=== PATIENT | female | born 1945 | race Caucasian/White ===

== ENCOUNTER 2017-05-13 12:49 | Outpatient (CLI) | payer MEDICARE ==
[~2017-05-13 12:49] MED LIST: ASPI-1265 PO; ATEN-169 PO; ATOR-2 PO; CITA20TA11 PO; CLOP75TA15 PO; COLE1TAB2 PO; HCTZ25T PO; HYDR-3965 PO; MELO-100 PO; OMEP20CA10 PO
[2017-05-13 13:28] LABS: ANION GAP 10 (8-16); BLOOD UREA NITROGEN 19 MG/DL (7-18); BUN/CREATININE RATIO 18.8 (6.6-38.0); CALCIUM 8.6 MG/DL (8.5-10.1); CHLORIDE 100 MMOL/L (99-107); CREATININE 1.01 MG/DL (0.40-0.90); GLUCOSE 102 MG/DL (70-104); POTASSIUM 3.6 MMOL/L (3.5-5.1); SODIUM 138 MMOL/L (135-145); TOTAL CARBON DIOXIDE 27.8 MMOL/L (24-32); eGFR 54 ML/MIN
== END 2017-05-13 23:59 | disposition home or self-care (01) ==
LOC: LAB 12:49
PROVIDERS: ATTEND Internal Medicine Interventional Cardiology
DX: I10 Essential (primary) hypertension (principal); Z98.890 Other specified postprocedural states
CPT/HCPCS: 36415; 80048

== ENCOUNTER 2018-10-28 09:20 | Outpatient (CLI) | payer MEDICARE ==
[~2018-10-28 09:20] MED LIST changes: -CITA20TA11 PO; +CITA20TA28 PO; -OMEP20CA10 PO; +OMEP20CA11 PO
[2018-10-28 10:16] LABS: PARTIAL THROMBOPLASTIN TIME 26 SECONDS (22-32)
[2018-10-28 10:17] LABS: ALBUMIN 3.8 G/DL (3.4-5.0); ANION GAP 10 (8-16); BASOPHILS % (AUTO) 0.7 % (0-1); BLOOD UREA NITROGEN 22 MG/DL (7-18); BUN/CREATININE RATIO 17.6 (6.6-38.0); CALCIUM 8.9 MG/DL (8.5-10.1); CHLORIDE 101 MMOL/L (99-107); CREATININE 1.25 MG/DL (0.40-0.90); EOSINOPHILS # (AUTO) 0.1 X10'3 (0-0.9); GLUCOSE 107 MG/DL (70-104); HEMATOCRIT 36.6 % (35.0-45.0); HEMOGLOBIN 12.3 g/dl (12.0-16.0); LYMPHOCYTES # (AUTO) 1.1 X10'3 (1.1-4.8); LYMPHOCYTES % (AUTO) 18.1 % (21-51); MEAN CORPUSCULAR HEMOGLOBIN 33.6 PG (27.0-31.0); MEAN CORPUSCULAR HGB CONC 33.6 g/dL (33.0-36.5); MEAN PLATELET VOLUME 6.8 FL (7.4-10.4); MONOCYTES # (AUTO) 0.4 X10'3 (0-0.9); MONOCYTES % (AUTO) 7.1 % (2-12); NEUTROPHILS # (AUTO) 4.6 X10'3 (1.8-7.7); NEUTROPHILS % (AUTO) 73.1 % (42-75); PLATELET COUNT 242 X10'3 (140-440); POTASSIUM 4.1 MMOL/L (3.5-5.1); RED BLOOD COUNT 3.66 X10'6 (4.20-5.60); RED CELL DISTRIBUTION WIDTH 13.4 % (11.5-14.5); SODIUM 137 MMOL/L (135-145); TOTAL CARBON DIOXIDE 26.5 MMOL/L (24-32); WHITE BLOOD COUNT 6.2 X10'3 (4.5-11.0); eGFR 42 ML/MIN
== END 2018-10-28 23:59 | disposition home or self-care (01) ==
LOC: LAB 09:20
PROVIDERS: ATTEND Internal Medicine Interventional Cardiology
DX: Z01.810 Encounter for preprocedural cardiovascular examination (principal); I25.718 Atherosclerosis of autologous vein coronary artery bypass graft(s) with other forms of angina pectoris; I70.213 Atherosclerosis of native arteries of extremities with intermittent claudication, bilateral legs; I25.118 Atherosclerotic heart disease of native coronary artery with other forms of angina pectoris; I65.23 Occlusion and stenosis of bilateral carotid arteries; I10 Essential (primary) hypertension; I49.8 Other specified cardiac arrhythmias; E06.0 Acute thyroiditis; M79.606 Pain in leg, unspecified; Z85.3 Personal history of malignant neoplasm of breast; Z88.5 Allergy status to narcotic agent; Z88.8 Allergy status to other drugs, medicaments and biological substances
CPT/HCPCS: 36415; 80048; 85025; 85610; 85730

== ENCOUNTER 2021-11-07 14:05 | Inpatient (IN) | payer MEDICARE ==
[~2021-11-07] VITALS: Ht 154.9 cm; Wt 53.3 kg
[~2021-11-07 14:05] MED LIST changes: +ALEN70TA60 PO; +ASPI-1 PO; -ASPI-1265 PO; -ATEN-169 PO; +BIOF1TAB7 PO; +CHLO25TA10 PO; -CITA20TA28 PO; -CLOP75TA15 PO; -COLE1TAB2 PO; -HCTZ25T PO; -HYDR-3965 PO; +HYDR-3972 PO; +LISI5TAB22 PO; -OMEP20CA11 PO; +OMEP20CA15 PO; +ONDA4TAB6 PO
[2021-11-07 14:40] LABS: BASOPHILS # (AUTO) 0.1 X10'3 (0-0.2); BASOPHILS % (AUTO) 1.2 % (0-1); EOSINOPHILS % (AUTO) 0.3 % (0-6); HEMATOCRIT 32.8 % (35.0-45.0); HEMOGLOBIN 11.3 g/dl (12.0-16.0); LYMPHOCYTES # (AUTO) 0.7 X10'3 (1.1-4.8); LYMPHOCYTES % (AUTO) 13.1 % (21-51); MEAN CORPUSCULAR HEMOGLOBIN 33.9 PG (27.0-31.0); MEAN CORPUSCULAR HGB CONC 34.4 g/dL (33.0-36.5); MEAN CORPUSCULAR VOLUME 98.7 FL (78-98); MEAN PLATELET VOLUME 6.3 FL (7.4-10.4); MONOCYTES # (AUTO) 0.6 X10'3 (0-0.9); MONOCYTES % (AUTO) 11.3 % (2-12); NEUTROPHILS # (AUTO) 3.9 X10'3 (1.8-7.7); NEUTROPHILS % (AUTO) 74.1 % (42-75); PLATELET COUNT 258 X10'3 (140-440); RED BLOOD COUNT 3.33 X10'6 (4.20-5.60); RED CELL DISTRIBUTION WIDTH 12.9 % (11.5-14.5); WHITE BLOOD COUNT 5.3 X10'3 (4.5-11.0)
[2021-11-07 14:50] LABS: ALANINE AMINOTRANSFERASE 26 U/L (12-78); ALBUMIN 3.8 G/DL (3.4-5.0); ALBUMIN/GLOBULIN RATIO 1.2 (1.1-1.5); ALKALINE PHOSPHATASE 120 IU/L (46-116); ANION GAP 14 (8-16); ASPARTATE AMINO TRANSFERASE 23 U/L (10-37); BILIRUBIN,TOTAL 0.5 MG/DL (0.1-1.0); BLOOD UREA NITROGEN 27 MG/DL (7-18); BUN/CREATININE RATIO 20.6 (6.6-38.0); CALCIUM 8.8 MG/DL (8.5-10.1); CHLORIDE 96 MMOL/L (99-107); CREATININE 1.31 MG/DL (0.40-0.90); GLUCOSE 102 MG/DL (70-104); POTASSIUM 4.2 MMOL/L (3.5-5.1); SODIUM 133 MMOL/L (135-145); TOTAL CARBON DIOXIDE 23.4 MMOL/L (24-32); TOTAL PROTEIN 7.1 G/DL (6.4-8.2); eGFR 40 ML/MIN
[2021-11-07] MEDS ORDERED: magnesium hydroxide 30ml (MOM) UD suspension PO PRN (18:15)
[2021-11-07] MEDS ORDERED: morphine 2 MG/ML inj. syringe IV PRN (18:15)
[2021-11-07] MEDS ORDERED: mag hydrox/Alum hydrox/simeth 30ml oral suspension PO PRN (18:15)
[2021-11-07] MEDS ORDERED: PERFLUTREN PROTEIN-A MICROSPHR (Optison) 0.22 MG/ML 3ML VIAL IV ONE (18:15)
[2021-11-07] MEDS ORDERED: ondansetron/PF 4mg/2ml inj IV PRN (18:15)
[2021-11-07] MEDS ORDERED: acetaminophen 325mg tablet PO PRN (18:15)
[2021-11-07] MEDS: HEPARIN SOD,PORK IN 0.45% NACL 250 ML IV SCH (18:35)
[2021-11-07] MEDS ORDERED: heparin 10,000 units/1 ML INJ IV ONE (18:35)
[2021-11-07] MEDS ORDERED: HYDR12.5 (18:36)
[2021-11-07] MEDS: docusate sod 100mg capsule PO SCH (20:47)
[2021-11-07] MEDS: normal saline 1000ml 1,000 ML IV SCH (20:48)
[2021-11-07 21:39] LABS: BASOPHILS # (AUTO) 0.1 X10'3 (0-0.2); BASOPHILS % (AUTO) 1.2 % (0-1); EOSINOPHILS % (AUTO) 0.5 % (0-6); HEMATOCRIT 35.1 % (35.0-45.0); LYMPHOCYTES # (AUTO) 0.9 X10'3 (1.1-4.8); MEAN CORPUSCULAR HEMOGLOBIN 34.1 PG (27.0-31.0); MEAN CORPUSCULAR HGB CONC 34.3 g/dL (33.0-36.5); MEAN CORPUSCULAR VOLUME 99.3 FL (78-98); MEAN PLATELET VOLUME 6.5 FL (7.4-10.4); MONOCYTES # (AUTO) 0.6 X10'3 (0-0.9); MONOCYTES % (AUTO) 11.7 % (2-12); NEUTROPHILS # (AUTO) 3.5 X10'3 (1.8-7.7); NEUTROPHILS % (AUTO) 68.6 % (42-75); PLATELET COUNT 272 X10'3 (140-440); RED BLOOD COUNT 3.53 X10'6 (4.20-5.60); RED CELL DISTRIBUTION WIDTH 13.1 % (11.5-14.5); WHITE BLOOD COUNT 5.1 X10'3 (4.5-11.0)
[2021-11-07] MEDS: morphine 2 MG/ML inj. syringe IV PRN (21:53)
[2021-11-07] MEDS ORDERED: HYDR25TA4 PO (21:54)
[2021-11-07 21:57] LABS: APTT 83 SECONDS (22-32)
[2021-11-08 03:28] LABS: BASOPHILS # (AUTO) 0.1 X10'3 (0-0.2); BASOPHILS % (AUTO) 1.2 % (0-1); EOSINOPHILS % (AUTO) 0.9 % (0-6); HEMATOCRIT 33.9 % (35.0-45.0); HEMOGLOBIN 11.6 g/dl (12.0-16.0); LYMPHOCYTES # (AUTO) 0.8 X10'3 (1.1-4.8); MEAN CORPUSCULAR HEMOGLOBIN 34.3 PG (27.0-31.0); MEAN CORPUSCULAR HGB CONC 34.2 g/dL (33.0-36.5); MEAN CORPUSCULAR VOLUME 100.3 FL (78-98); MEAN PLATELET VOLUME 6.7 FL (7.4-10.4); MONOCYTES # (AUTO) 0.6 X10'3 (0-0.9); MONOCYTES % (AUTO) 11.9 % (2-12); NEUTROPHILS # (AUTO) 3.6 X10'3 (1.8-7.7); PLATELET COUNT 250 X10'3 (140-440); RED BLOOD COUNT 3.38 X10'6 (4.20-5.60); WHITE BLOOD COUNT 5.1 X10'3 (4.5-11.0)
[2021-11-08 03:41] LABS: APTT 29 SECONDS (22-32)
[2021-11-08 03:43] LABS: ALBUMIN 3.3 G/DL (3.4-5.0); ANION GAP 10 (8-16); BLOOD UREA NITROGEN 28 MG/DL (7-18); BUN/CREATININE RATIO 20.4 (6.6-38.0); CALCIUM 8.4 MG/DL (8.5-10.1); CHLORIDE 101 MMOL/L (99-107); CREATININE 1.37 MG/DL (0.40-0.90); GLUCOSE 99 MG/DL (70-104); POTASSIUM 3.8 MMOL/L (3.5-5.1); SODIUM 136 MMOL/L (135-145); TOTAL CARBON DIOXIDE 25.5 MMOL/L (24-32); eGFR 38 ML/MIN
[2021-11-08] MEDS: normal saline 1000ml 1,000 ML IV SCH ×2 (04:03→14:15)
[2021-11-08] MEDS: heparin 10,000 units/1 ML INJ IV PRN ×2 (04:06→16:39)
[2021-11-08] MEDS: aspirin 81mg, enteric-coated 1 TAB TABLET.DR PO SCH (08:10)
[2021-11-08] MEDS: docusate sod 100mg capsule PO SCH ×2 (08:10→20:42)
[2021-11-08] MEDS: atorvastatin 20mg tablet PO SCH (08:10)
[2021-11-08] MEDS ORDERED: ASPI81TA52 PO (09:26)
[2021-11-08] MEDS ORDERED: MELO-100 PO (09:26)
[2021-11-08 09:31] LABS: APTT 46 SECONDS (22-32)
--- NOTE | 2021-11-08 09:55 | NUR ---
ASSISTING PRIMARY RN WITH PT CARE, PT AMB WITH STEADY GAIT TO BATHROOM, NO CHEST PAIN/DISCOMFORT, NO SOB, MED REC COMPLETED, PAGED DR PURCELL
[2021-11-08] MEDS ORDERED: HYDROcodone/acetaminophen 10/325mg tab PO PRN (11:20)
[2021-11-08 11:36] LABS: CHOL/HDL RATIO 2.9 (0.00-4.99); CHOLESTEROL 231 MG/DL (0-200); HDL CHOLESTEROL 81 MG/DL (35-60); LDL CHOLESTEROL 122 MG/DL (50-100); TRIGLYCERIDES 67 MG/DL (20-135)
[2021-11-08] MEDS ORDERED: CALC-723 PO (13:40)
[2021-11-08 17:45] VITALS: BP 145/90
--- NOTE | 2021-11-08 17:46 | NUR ---
Received patient to room 302 via wheelchair accompanied by x1 staff. Patient alert and oriented c/o upper chest pain burning like sensation when laid down but when placed HOB up patient stated "it subsided." Patient has heparin gtt and NS infusing as ordered. Oriented patient to room and call light, call light placed within reach, bed low and locked, non skid socks on, x2 side rails up. Addendum: 11/08/21 at 1756 by Amada Reynaga RN c/o epigastric pain
[2021-11-08 18:00] VITALS: BP 132/75
--- NOTE | 2021-11-08 18:31 | NUR ---
Problems reprioritized. Patient report given, questions answered & plan of care reviewed with SIDDHARTHA Gardner.
[2021-11-08] MEDS: morphine 2 MG/ML inj. syringe IV PRN (20:35)
[2021-11-08] MEDS: metoprolol tartrate 12.5mg (1/2 tablet) PO SCH (20:42)
[2021-11-08] MEDS ORDERED: lisinopril 10 MG tablet PO SCH (21:00)
[2021-11-08] MEDS ORDERED: pantoprazole 40mg Tablet.DR PO SCH (21:00)
[2021-11-08 22:00] VITALS: BP 93/46
[2021-11-09] MEDS: normal saline 1000ml 1,000 ML IV SCH ×2 (00:15→10:15)
[2021-11-09 02:00] VITALS: BP 108/60
[2021-11-09 06:00] VITALS: BP 99/47
--- NOTE | 2021-11-09 06:50 | NUR ---
Patient in room PCU 3025. I have received report from SIDDHARTHA Montgomery and had the opportunity to ask questions and assume patient care.
[2021-11-09 07:04] LABS: BASOPHILS # (AUTO) 0.1 X10'3 (0-0.2); BASOPHILS % (AUTO) 1.1 % (0-1); EOSINOPHILS # (AUTO) 0.1 X10'3 (0-0.9); EOSINOPHILS % (AUTO) 1.4 % (0-6); HEMATOCRIT 30.6 % (35.0-45.0); HEMOGLOBIN 10.4 g/dl (12.0-16.0); LYMPHOCYTES # (AUTO) 0.8 X10'3 (1.1-4.8); MEAN CORPUSCULAR HEMOGLOBIN 33.8 PG (27.0-31.0); MEAN CORPUSCULAR VOLUME 99.5 FL (78-98); MEAN PLATELET VOLUME 6.8 FL (7.4-10.4); MONOCYTES # (AUTO) 0.6 X10'3 (0-0.9); MONOCYTES % (AUTO) 10.8 % (2-12); NEUTROPHILS # (AUTO) 3.7 X10'3 (1.8-7.7); NEUTROPHILS % (AUTO) 71.7 % (42-75); PLATELET COUNT 209 X10'3 (140-440); RED BLOOD COUNT 3.08 X10'6 (4.20-5.60); RED CELL DISTRIBUTION WIDTH 13.1 % (11.5-14.5); WHITE BLOOD COUNT 5.2 X10'3 (4.5-11.0)
[2021-11-09 07:07] LABS: ANION GAP 9 (8-16); BLOOD UREA NITROGEN 23 MG/DL (7-18); BUN/CREATININE RATIO 19.7 (6.6-38.0); CALCIUM 7.7 MG/DL (8.5-10.1); CHLORIDE 104 MMOL/L (99-107); CREATININE 1.17 MG/DL (0.40-0.90); GLUCOSE 94 MG/DL (70-104); POTASSIUM 3.8 MMOL/L (3.5-5.1); SODIUM 138 MMOL/L (135-145); TOTAL CARBON DIOXIDE 25.3 MMOL/L (24-32); eGFR 45 ML/MIN
[2021-11-09] MEDS ORDERED: HYDROchlorothiazide 25mg tablet PO SCH (08:00)
[2021-11-09] MEDS ORDERED: Meloxicam 7.5 MG TAB PO SCH (08:00)
[2021-11-09] MEDS: metoprolol tartrate 12.5mg (1/2 tablet) PO SCH (08:00)
--- NOTE | 2021-11-09 08:01 | NUR ---
Patient in room PCU 3025 A. I have received report from Ulises and had the opportunity to ask questions and assume patient care.
[2021-11-09] MEDS: aspirin 81mg, enteric-coated 1 TAB TABLET.DR PO SCH (09:27)
[2021-11-09] MEDS: docusate sod 100mg capsule PO SCH (09:27)
[2021-11-09] MEDS: atorvastatin 20mg tablet PO SCH (09:27)
[2021-11-09 11:00] VITALS: BP 132/63
[2021-11-09] MEDS: HEPARIN SOD,PORK IN 0.45% NACL 250 ML IV SCH (11:42)
[2021-11-09] MEDS ORDERED: LOP12.5T PO (12:50)
[2021-11-09] MEDS ORDERED: NITR0.4T51 SL (12:51)
--- NOTE | 2021-11-09 15:47 | NUR ---
DISCHARGE EDUCATION PROVIDED, IV D/CD, TIP INTACT, PT BELONGINGS SENT WITH THE PT, WHEELCHAIR TO VEHICLE.
== END 2021-11-09 15:30 | disposition home or self-care (01) | DRG 303 ==
LOC: ER 14:06 → ED HOLD 18:18 → PCU 3S 11-08 17:26
PROVIDERS: ADMIT Family Medicine; ATTEND Family Medicine
DX: I25.119 Atherosclerotic heart disease of native coronary artery with unspecified angina pectoris (principal); E46 Unspecified protein-calorie malnutrition; E78.00 Pure hypercholesterolemia, unspecified; G89.29 Other chronic pain; I10 Essential (primary) hypertension; Z20.822 Contact with and (suspected) exposure to COVID-19; I73.9 Peripheral vascular disease, unspecified; K21.9 Gastro-esophageal reflux disease without esophagitis; M19.90 Unspecified osteoarthritis, unspecified site; I35.0 Nonrheumatic aortic (valve) stenosis; R54 Age-related physical debility; M81.0 Age-related osteoporosis without current pathological fracture; Z79.82 Long term (current) use of aspirin; Z85.3 Personal history of malignant neoplasm of breast; Z87.891 Personal history of nicotine dependence; Z90.710 Acquired absence of both cervix and uterus; Z92.21 Personal history of antineoplastic chemotherapy; Z92.3 Personal history of irradiation; Z95.1 Presence of aortocoronary bypass graft; Z68.22 Body mass index [BMI] 22.0-22.9, adult; Z88.2 Allergy status to sulfonamides; Z88.8 Allergy status to other drugs, medicaments and biological substances
CPT/HCPCS: 36415; 71045; 80048; 80053; 80061; 83880; 84484; 85025; 85610; 85730; 87081; 87811; 93005; 93306; 99285; G0378; J1644; J2270; J2405; J7030

== ENCOUNTER 2022-01-08 10:42 | Day surgery (SDC) | payer MEDICARE ==
[~2022-01-08] VITALS: Ht 157.5 cm; Wt 47.6 kg
[2022-01-08] VITALS (10 sets, daily range): BP systolic 91–145; BP diastolic 38–74
[~2022-01-08 10:42] MED LIST changes: -ASPI-1 PO; +ASPI81TA52 PO; -BIOF1TAB7 PO; +CALC-723 PO; -CHLO25TA10 PO; +HYDR25TA4 PO; +LOP12.5T PO; -ONDA4TAB6 PO
[2022-01-08] MEDS ORDERED: diphenhydrAMINE 25mg capsule PO PRN (11:25)
[2022-01-08] MEDS ORDERED: LORazepam 0.5 MG tablet PO PRN (11:25)
[2022-01-08] MEDS ORDERED: normal saline 1,000 ML IV SCH (11:25)
[2022-01-08] MEDS ORDERED: LIDOcaine 1% 30ml preserv. free vial ONE (11:50)
[2022-01-08] MEDS ORDERED: iohexol 350MG/ML 100ml bottle IV ONE ×3 (11:50→13:49)
[2022-01-08 12:26] LABS: BASOPHILS % (AUTO) 0.8 % (0-1); EOSINOPHILS % (AUTO) 0.8 % (0-6); HEMATOCRIT 35.6 % (35.0-45.0); HEMOGLOBIN 12.1 g/dl (12.0-16.0); LYMPHOCYTES # (AUTO) 0.8 X10'3 (1.1-4.8); LYMPHOCYTES % (AUTO) 14.7 % (21-51); MEAN CORPUSCULAR HEMOGLOBIN 33.5 PG (27.0-31.0); MEAN CORPUSCULAR VOLUME 98.4 FL (78-98); MONOCYTES # (AUTO) 0.6 X10'3 (0-0.9); MONOCYTES % (AUTO) 11.1 % (2-12); NEUTROPHILS % (AUTO) 72.6 % (42-75); PLATELET COUNT 270 X10'3 (140-440); RED BLOOD COUNT 3.61 X10'6 (4.20-5.60); RED CELL DISTRIBUTION WIDTH 13.9 % (11.5-14.5); WHITE BLOOD COUNT 5.5 X10'3 (4.5-11.0)
[2022-01-08 12:27] LABS: ALBUMIN 3.7 G/DL (3.4-5.0); ANION GAP 10 (8-16); BLOOD UREA NITROGEN 24 MG/DL (7-18); CALCIUM 8.7 MG/DL (8.5-10.1); CHLORIDE 91 MMOL/L (99-107); CREATININE 1.72 MG/DL (0.40-0.90); GLUCOSE 107 MG/DL (70-104); POTASSIUM 3.6 MMOL/L (3.5-5.1); SODIUM 129 MMOL/L (135-145); TOTAL CARBON DIOXIDE 27.9 MMOL/L (24-32); eGFR 29 ML/MIN
[2022-01-08] MEDS ORDERED: midazolam 1 mg/ML 2ml injection ONE (12:29)
[2022-01-08] MEDS ORDERED: fentaNYL/PF 50MCG/1 ML 2ML syringe ONE (12:29)
[2022-01-08 12:31] LABS: APTT 25 SECONDS (22-32)
[2022-01-08] MEDS ORDERED: heparin 1,000unit/ml 10ml vial 10 ML ONE (13:30)
[2022-01-08] MEDS ORDERED: aspirin 325mg tablet ONE (14:05)
[2022-01-08] MEDS ORDERED: clopidogrel 300mg tablet ONE (14:05)
[2022-01-08] MEDS ORDERED: HYDROcodone/acetaminophen 5mg/325mg tablet PO PRN (14:50)
[2022-01-08] MEDS ORDERED: HYDROcodone/acetaminophen 10/325mg tab PO PRN (14:50)
--- NOTE | 2022-01-08 18:30 | NUR ---
Recd report from SIDDHARTHA Campbell and assumed care of pt.
== END 2022-01-08 19:55 | disposition home or self-care (01) ==
LOC: SSTAY O 10:42
PROVIDERS: ATTEND Student in an Organized Health Care Education/Training Program
DX: I25.10 Atherosclerotic heart disease of native coronary artery without angina pectoris (principal); I25.82 Chronic total occlusion of coronary artery; E78.5 Hyperlipidemia, unspecified; I25.810 Atherosclerosis of coronary artery bypass graft(s) without angina pectoris; I11.0 Hypertensive heart disease with heart failure; I50.9 Heart failure, unspecified; Z86.73 Personal history of transient ischemic attack (TIA), and cerebral infarction without residual deficits; Z79.899 Other long term (current) drug therapy; Z98.890 Other specified postprocedural states; D64.9 Anemia, unspecified; Z85.3 Personal history of malignant neoplasm of breast; Z88.8 Allergy status to other drugs, medicaments and biological substances; Z88.2 Allergy status to sulfonamides
CPT/HCPCS: 36415; 80048; 85025; 85610; 85730; 93005; 93459; 93567; 99152; 99153; C1725; C1751; C1760; C1769; C1894; C9604; J1644; J2250; J3010; J3490; J7030; Q0163; Q9967; A4620; A6258; A6449; C1874